=== PATIENT | male | born 1980 | race Two or more races ===

== ENCOUNTER 2019-01-01 18:09 | Emergency (ER) | payer MEDICAID ==
[~2019-01-01] VITALS: Ht 177.8 cm; Wt 77.1 kg
[2019-01-01] MEDS ORDERED: BUSP10TA3 PO (18:23)
[2019-01-01] MEDS ORDERED: HYDR50CA PO (18:23)
[2019-01-01] MEDS ORDERED: BUPR-96 PO (18:23)
[2019-01-01 18:41] LABS: BASOPHILS # (AUTO) 0.1 K/uL (0.0-8.0); BASOPHILS % (AUTO) 0.5 % (0.0-2.0); EOSINOPHILS # (AUTO) 0.1 K/uL (0.0-0.7); EOSINOPHILS % (AUTO) 0.7 % (0.0-7.0); HEMATOCRIT 47.6 % (36.7-47.1); HEMOGLOBIN 16.4 g/dL (12.5-16.3); LYMPHOCYTES # (AUTO) 1.9 K/uL (20.0-40.0); LYMPHOCYTES % (AUTO) 14.7 % (20.5-51.5); MEAN CORPUSCULAR HEMOGLOBIN 30.4 uug (23.8-33.4); MEAN CORPUSCULAR HGB CONC 35 g/dL (32.5-36.3); MONOCYTES # (AUTO) 0.9 K/uL (2.0-10.0); MONOCYTES % (AUTO) 7.2 % (0.0-11.0); NEUTROPHILS # (AUTO) 10.1 K/uL (1.8-8.9); NEUTROPHILS % (AUTO) 76.9 % (38.5-71.5); PLATELET COUNT (AUTO) 444 K/uL (152-348); WHITE BLOOD COUNT (AUTO) 13.1 K/uL (3.6-10.2)
[2019-01-01 18:46] LABS: *BILIRUBIN,URIN NEGATIVE (NEGATIVE); *BLOOD, URINE NEGATIVE (NEGATIVE); *CLARITY,URINE CLEAR (CLEAR); *COLOR,URINE LIGHT YELLOW (YELLOW); *KETONES,URINE NEGATIVE (NEGATIVE); *UROBILINOGEN,URINE 0.2 E.U./dl (NORMAL); LEUKOCYTE ESTERASE ,URINE NEGATIVE (NEGATIVE); NITRITE, URINE NEGATIVE (NEGATIVE); PH,URINE 6.5 (5.0-8.0); UGLUCOSE NEGATIVE (NEGATIVE)
[2019-01-01 18:46] LABS: CARBON DIOXIDE 25 mmol/L (21-32); CHLORIDE 100 mmol/L (98-107); CREATININE 0.9 mg/dL (0.6-1.3); GLUCOSE 107 mg/dL (74-106); POTASSIUM 3.9 mmol/L (3.5-5.1); UREA NITROGEN, BLOOD 13 mg/dL (7-18)
[2019-01-01 18:52] LABS: ACETAMINOPHEN < 2.0 ug/mL (10-30); ALANINE AMINOTRANSFERASE 28 U/L (16-63); ALKALINE PHOSPHATASE 74 U/L (50-136); ASPARTATE AMINOTRANSFERASE 19 U/L (15-37); BILIRUBIN,DIRECT 0.1 mg/dL (0.0-0.2); BILIRUBIN,TOTAL 0.3 mg/dL (0.2-1.0); ETHANOL 64 MG/DL (0-0); TOTAL PROTEIN, SERUM 7.8 g/dL (6.4-8.2)
[2019-01-01 18:55] LABS: WBC,URINE NONE SEEN /HPF (0-3)
[2019-01-01 19:00] LABS: *AMPHETAMINE, URINE NEGATIVE (NEGATIVE); *BARBITURATE, URINE NEGATIVE (NEGATIVE); *CANNABINOID, URINE NEGATIVE (NEGATIVE); *COCCAINE, URINE NEGATIVE (NEGATIVE); *OPIATE, URINE NEGATIVE (NEGATIVE); *PHENCYCLIDINE SCREEN,URINE NEGATIVE (NEGATIVE)
--- NOTE | 2019-01-01 19:11 | NUR ---
pending medical clearance, SBAR to LUCY Bustillos
--- NOTE | 2019-01-01 19:15 | NUR ---
Patient eating in bed. NAD
--- NOTE | 2019-01-01 19:18 | NUR ---
Patient medically cleared per [facility].
--- NOTE | 2019-01-01 19:30 | NUR ---
[facility] crisis team called. ETA 1 hour.
--- NOTE | 2019-01-01 20:14 | NUR ---
Patient in bed awake wathing TV, NAD noted.
--- NOTE | 2019-01-01 21:00 | NUR ---
Patient asleep in bed. NAD
--- NOTE | 2019-01-01 21:20 | NUR ---
[facility] Medical transportation called and ETA [id number]
--- NOTE | 2019-01-01 23:16 | NUR ---
Patient sleeping in bed. NAD
--- NOTE | 2019-01-02 00:59 | NUR ---
Pt. admitted to [facility] , under care of Dr. Isabel LOZADA NAD
== END 2019-01-02 01:02 | disposition short-term general hospital (02) ==
LOC: ER 18:11
DX: S82.091A Other fracture of right patella, initial encounter for closed fracture (principal); S50.812A Abrasion of left forearm, initial encounter; F32.9 Major depressive disorder, single episode, unspecified; R45.851 Suicidal ideations; Z88.2 Allergy status to sulfonamides; Z79.899 Other long term (current) drug therapy; Z59.0 Homelessness; W19.XXXA Unspecified fall, initial encounter; Y93.89 Activity, other specified; Y92.89 Other specified places as the place of occurrence of the external cause; Y99.8 Other external cause status
CPT/HCPCS: 29505; 36415; 73564; 80048; 80076; 80307; 81001; 85025; 99285; G0480 ×2; G0481; A4663